=== PATIENT | male | born 2000 | race Two or more races ===

== ENCOUNTER 2024-08-18 16:49 | Emergency (ER) | payer OTHER ==
[~2024-08-18] VITALS: Ht 167.6 cm; Wt 71.2 kg
[2024-08-18 16:57] VITALS: BP 102/65; O2SAT 100
[2024-08-18] MEDS ORDERED: CELEXA20 MG (16:58)
[2024-08-18 21:56] LABS: HEMATOCRIT 46.7 % (39.0-48.0); HEMOGLOBIN 15.8 g/dL (13-16.00); MEAN CELL VOLUME 82.8 fL (80.0-100.00); MEAN CORPUSCULAR HEMOGLOBIN 27.9 pg (27.00-32.0); MEAN CORPUSCULAR HGB CONC 33.7 g/dl (32.0-36.0); PLATELET COUNT 179 K/uL (150-450); RED BLOOD COUNT 5.64 M/uL (4.00-6.00); RED CELL DISTRIBUTION WIDTH 14.1 % (11.5-14.5)
[2024-08-19 00:10] LABS: COVID-19 AG NEGATIVE (NEGATIVE); INFLUENZA A AG NEGATIVE (NEGATIVE)
[2024-08-19] MEDS ORDERED: GILTUSS COUGH-118 M1 PO (00:21)
[2024-08-19] MEDS ORDERED: ZITHROMAX TRI-500 MG PO (00:21)
== END 2024-08-19 00:38 | disposition home or self-care (01) ==
LOC: ER 16:50
PROVIDERS: Preventive Medicine Public Health & General Preventive Medicine
DX: S09.93XA Unspecified injury of face, initial encounter (principal); Y08.89XA Assault by other specified means, initial encounter; Y93.F9 Activity, other caregiving; Y92.230 Patient room in hospital as the place of occurrence of the external cause; H05.232 Hemorrhage of left orbit; Z20.822 Contact with and (suspected) exposure to COVID-19